=== PATIENT | female | born 1975 | race Two or more races ===

== ENCOUNTER 2019-12-29 14:37 | Emergency (ER) | payer MEDICAID, MEDICARE, OTHER ==
[~2019-12-29] VITALS: Ht 154.9 cm; Wt 50.0 kg
[2019-12-29] MEDS ORDERED: SODIUM CHLORIDE 0.9% 1,000ML IVBOLUS ONE ×2 (15:00→16:00)
--- NOTE | 2019-12-29 15:02 | NUR ---
PT BIB [facility], PT WITH ABD PAIN AND NAUSEA X2 WEEKS. PT WITH HX OF DM, PT STATES DOES NOT CHECK HER SUGARS. PER EMS, PT'S FSBS READ "HIGH." PT PLACED ON MONITORS, VSS. ER PA-C AT BEDSIDE FOR ASSESSMENT. WILL FOLLOW ORDERS.
[2019-12-29 15:18] LABS: MICROSCOPIC NOT IND
[2019-12-29 15:27] LABS: BASOPHILS % (AUTO) 0 % (0-1); EOSINOPHILS # (AUTO) 0.01 x10^3/uL (0-0.4); EOSINOPHILS % (AUTO) 0 % (1-7); LYMPHOCYTES # (AUTO) 0.82 x10^3/uL (1-3.4); LYMPHOCYTES % (AUTO) 11 % (22-44); MD NO; MEAN CORPUSCULAR HEMOGLOBIN 30.8 pg (27.0-34.8); MEAN CORPUSCULAR HGB CONC 32.4 g/dL (32.4-35.8); MEAN PLATELET VOLUME 9.9 fL (7.4-10.4); MONOCYTES # (AUTO) 0.15 x10^3/uL (0.2-0.8); MONOCYTES % (AUTO) 2 % (2-9); NEUTROPHILS # (AUTO) 6.48 x10^3/uL (1.8-6.8); NEUTROPHILS % (AUTO) 87 % (42-75); PLATELET COUNT 203 x10^3/uL (130-400); RED BLOOD COUNT 4.52 x10^6/uL (3.82-5.3)
[2019-12-29 15:29] LABS: ALBUMIN 3.2 g/dL (3.4-5.0); ANION GAP 13 mmol/L (5-15); CALCIUM 8.1 mg/dL (8.5-10.1); CHLORIDE 86 mmol/L (98-107)
[2019-12-29] MEDS ORDERED: INSULIN SINGLE DOSE, ER ONE ×5 (15:43→17:17)
--- NOTE | 2019-12-29 15:58 | NUR ---
PT MEDICATED FOR FSBS 1084 PER ORDERS. PT REMAINS ON MONITORS, VSS. PT REMAINS A&OX4. NO DISTRESS, CONT TO MONITOR.
[2019-12-29] MEDS ORDERED: INSULIN REGULAR 100 UNITS/ML, 3ML VIAL IVPush ONE ×2 (16:00→17:00)
[2019-12-29 16:19] LABS: ACETONE, SERUM Trace (Negative)
--- NOTE | 2019-12-29 16:52 | NUR ---
FSBS READS "HIGH," ERMD AWARE. PT REMAINS ON MONITORS, VSS. OK FOR PT TO HAVE WATER PER ER PA-C, WILL GIVE PT WATER PER REQUEST. CONT TO MONITOR.
[2019-12-29] MEDS ORDERED: POTASSIUM CHLORIDE 20 MEQ TAB.ER.PRT PO ONE (17:00)
[2019-12-29] MEDS ORDERED: POTASSIUM CHLORIDE 20 MEQ TAB.ER.PRT ONE (17:02)
--- NOTE | 2019-12-29 17:22 | NUR ---
PER ERMD, REPEAT INSULIN REG 10UNITS. ASKED FOR REPEAT BLOOD DRAW GLUCOSE SINCE FSBS READ "HIGH," PER ERMD DR PABLO, PT DOES NOT NEED A REDRAW SINCE FSBS IS STILL "HIGH." ERMD MADE AWARE OF PROTOCOL, PT NEEDS REDRAW GLUCOSE, ERMD STILL STATES TO GIVE MED WITHOUT REDRAW. [employer]CISION CROP MANAGERKRYSTLE PEREZ AWARE.
--- NOTE | 2019-12-29 18:18 | NUR ---
PT RESTING IN BED, ASKING FOR FOOD. WILL LET ERMD KNOW. PT RMAINS ON MONITORS, VSS. WILL FOLLOW ORDERS.
--- NOTE | 2019-12-29 18:54 | NUR ---
PT GIVEN MEAL TRAY. PT OK FOR D/C PER ERMD. WILL D/C WHEN PAPERWORK AVAILABLE.
--- NOTE | 2019-12-29 19:22 | NUR ---
PT GIVEN RESOURCES FOR HOMELESS SHELTERS AND GIVEN A BUS PASS UPON D/C. PT GIVEN D/C PAPERWORK, VERBALIZED UNDERSTANDING OF D/C INSTRUCTIONS.
[2019-12-29 19:23] VITALS: BP 114/78
== END 2019-12-29 19:25 | disposition home or self-care (01) ==
LOC: EDBD 14:37 → ED 16:30
DX: E11.65 Type 2 diabetes mellitus with hyperglycemia (principal); R11.2 Nausea with vomiting, unspecified; R10.9 Unspecified abdominal pain; R53.1 Weakness; R94.31 Abnormal electrocardiogram [ECG] [EKG]
CPT/HCPCS: 36415; 80048; 81003; 82010; 82040; 82803; 82962; 85025; 93005; 96361; 96374; 96376; 99291; J1815; J7030; 99285